=== PATIENT | female | born 1940 | race Caucasian/White ===

== ENCOUNTER 2019-05-05 19:33 | Emergency (ER) | payer OTHER ==
[~2019-05-05] VITALS: Ht 160 cm; Wt 63.5 kg
[2019-05-05 20:35] LABS: BE(vivo) -14.8 mmol/L (-2 to +3); HCO3 14.5 mmol/L (22.0-26.0); PCO2 49.6 mmHg (35.0-45.0); PO2 62.1 mmHg (80.0-100.0); pH 7.083 (7.360-7.450); sO2 81.8 % (92.0-98.0)
[2019-05-05 21:01] VITALS: BP 00/00
--- NOTE | 2019-05-05 21:16 | NUR ---
PT TSF FROM [facility] FOR OPEN HEART SURGERY, CODED ON THE WAY IN THE AMB. WENT TO ASSIST IN THE ER AND A 5FRTLPICC TRIMMED AND PLACED IN RT IJ WITH A BRISK BLOOD RETURN. PT BEFORE CXR CONFIRMATION WAS COMPLETED.
== END 2019-05-05 21:01 ==
LOC: ER 19:33
PROVIDERS: Emergency Medicine
DX: I46.9 Cardiac arrest, cause unspecified (principal)